=== PATIENT | male | born 1970 | race Caucasian/White ===

== ENCOUNTER → 2016-12-08 | Outpatient (CLI) | payer OTHER | LOC: CIMAGING 13:57 | PROVIDERS: ATTEND Physical Medicine & Rehabilitation | DX: M79.674 Pain in right toe(s) (principal) | CPT/HCPCS: 73630-PO ==

== ENCOUNTER → 2017-01-04 | Outpatient (CLI) | payer OTHER | LOC: FIMAGING 09:50 | PROVIDERS: ATTEND Family Medicine | DX: M89.8X5 Other specified disorders of bone, thigh (principal) ==

== ENCOUNTER 2017-04-27 07:39 | Day surgery (SDC) | payer OTHER ==
[~2017-04-27 07:39] MED LIST: ROPIVACAINE 0.2% 80 MG, EPINEPHrine 0.2 MG, morphINE 10 MG in SYRINGE 0 ML IU ONE
[2017-04-27] MEDS ORDERED: ACETAMINOPHEN 325 MG TAB PO ONE (07:46)
[2017-04-27] MEDS ORDERED: GABAPENTIN 300 MG CAP PO ONE (07:46)
[2017-04-27] MEDS ORDERED: ceFAZolin 2 GM/SWFI 2 GM/20 ML SYR IVP ONE (07:46)
[2017-04-27] MEDS ORDERED: LIDOCAINE 1% 2 ML INJ ID PRN (07:47)
[2017-04-27] MEDS ORDERED: LR 1,000 ML IV ONE (07:47)
--- NOTE | 2017-04-27 09:10 | PDHPUP ---
History & Physical Update H&P update statement: This history and physical update is based on an assessment of the patient which was completed after admission or registration (within 24 hours), but prior to the surgery/procedure. H&P update: H&P reviewed & patient examined, no change in patient's condition since H&P completed
[2017-04-27] MEDS ORDERED: fentaNYL 250 MCG/5 ML INJ ONE (09:24)
[2017-04-27] MEDS ORDERED: PROPOFOL 200 MG/20 ML VIAL ONE ×2 (09:24)
[2017-04-27] MEDS ORDERED: DEXAMETHASONE 4 MG/ML VIAL ONE (09:27)
[2017-04-27] MEDS ORDERED: KETOROLAC 30 MG/1 ML SDV ONE (09:27)
[2017-04-27] MEDS ORDERED: ONDANSETRON 4 MG/2 ML VIAL ONE (09:27)
[2017-04-27] MEDS ORDERED: ROCURONIUM 100 MG/10 ML VIAL ONE (09:28)
[2017-04-27] MEDS ORDERED: LIDOCAINE 2% 5 ML SDV ONE (09:28)
[2017-04-27] MEDS ORDERED: MIDAZOLAM 2 MG/2 ML VIAL IVP ONE (09:35)
--- NOTE | 2017-04-27 09:36 | PDANEPAE ---
ANE History of Present Illness right hip DAISHA p/f hip scope ANE Past Medical History - Cardiovascular History Hx Hypertension: Yes Hx Arrhythmias: No Hx Chest Pain: No Hx Coronary Artery / Peripheral Vascular Disease: No Hx CHF / Valvular Disease: No Hx Palpitations: No Cardiovascular History Comment: HYPERCHOESTEROLEMIA - Pulmonary History Hx COPD: No Hx Asthma/Reactive Airway Disease: No Hx Recent Upper Respiratory Infection: No Hx Oxygen in Use at Home: No Hx Sleep Apnea: No Sleep Apnea Screening Result - Last Documented: Negative - Neurologic History Hx Cerebrovascular Accident: No Hx Seizures: No Hx Dementia: No - Endocrine History Hx Diabetes: No Hypothyroid: No Hyperthyroid: No Obesity: yes, mild - Renal History Hx Renal Disorders: No - Liver History Hx Hepatic Disorders: No - Neurological & Psychiatric Hx Hx Neurological and Psychiatric Disorders: No - Cancer History Hx Cancer: No - Congenital Disorder History Hx Congenital Disorders: No - GI History GERD: mild Hx Gastrointestinal Disorders: No Gastrointestinal History Comment: ACID REFLUX - Other Health History Other Health History: NEG - Chronic Pain History Chronic Pain: Yes (LOW BACK PAIN) - Surgical History Prior Surgeries: LABRAL TEAR L SHOULDER. TONSILLECTOMY ANE Review of Systems Review of systems is: negative Review of Systems: - Exercise capacity METS (RN): 5 METS ANE Patient History - Allergies Allergies/Adverse Reactions: Latex, Natural Rubber Allergy (Verified 04/27/17 08:11) Itching - Home Medications Home medications: home medication list seen and reviewed Home Medications: PRILOSEC 07/03/09 [Last Taken 04/27/17 05:30] Aspirin 04/24/17 [Last Taken 04/17/17] Benicar 04/24/17 [Last Taken 04/26/17 22:00] HCTZ (*) 04/24/17 [Last Taken 04/26/17 22:00] Multivitamin 04/24/17 [Last Taken 04/13/17] Pravastatin Sodium 04/24/17 [Last Taken 04/26/17 22:00] - NPO status NPO Since - Liquids (Date): 04/26/17 NPO Since - Liquids (Time): 21:30 NPO Since - Solids (Date): 04/26/17 NPO Since - Solids (Time): 17:30 - Anes Hx Anes Hx: no prior problems - Smoking Hx Smoking Status: Never smoked - Alcohol Use Alcohol Use: None - Family Anes Hx Family Anes Hx: none Family Hx Anesthesia Complications: NEG ANE Labs/Vital Signs - Vital Signs Blood Pressure: 135/93 Heart Rate: 89 Respiratory Rate: 16 O2 Sat (%): 94 Height: 187.96 cm Weight: 125.645 kg ANE Physical Exam - Airway Neck exam: FROM Mallampati Score: Class 1 Mouth exam: normal dental/mouth exam - Pulmonary Pulmonary: no respiratory distress - Cardiovascular Cardiovascular: regular rate and rhythym - ASA Status ASA Status: II ANE Anesthesia Plan Anesthesia Plan: general endotracheal anesthesia Specialized Airway: video laryngoscope
[2017-04-27] MEDS ORDERED: BUPIVACAINE/EPI 0.5% 30 ML SDV ONE (09:37)
[2017-04-27] MEDS ORDERED: SUGAMMADEX SODIUM 200 MG/2 ML VIAL IVP ONE (10:13)
[2017-04-27] MEDS ORDERED: MORPHINE IU ONE (10:45)
[2017-04-27] MEDS ORDERED: ROPIVACAINE IU ONE (10:45)
[2017-04-27] MEDS ORDERED: hydrALAZINE 20 MG/ML VIAL ONE (10:56)
[2017-04-27] MEDS ORDERED: PROMETHAZINE HCL 25 MG/ML INJ IVP PRN (11:32)
[2017-04-27] MEDS ORDERED: ONDANSETRON 4 MG/2 ML VIAL IVP PRN (11:32)
[2017-04-27] MEDS ORDERED: HYDROCODONE/APAP 5/325 TAB PO PRN (11:32)
[2017-04-27] MEDS ORDERED: ACETAMINOPHEN 500 MG TAB PO PRN (11:32)
[2017-04-27] MEDS ORDERED: LR 500 ML IV PRN (11:32)
[2017-04-27] MEDS ORDERED: HYDROmorphONE/DILAUDID 1 MG/ML INJ IVP PRN (11:32)
[2017-04-27] MEDS ORDERED: NALOXONE HCL 0.4 MG/ML INJ IVP PRN (11:32)
[2017-04-27] MEDS ORDERED: ALBUTEROL 3 ML DEYVIAL IH PRN (11:32)
[2017-04-27] MEDS ORDERED: METOCLOPRAMIDE 10 MG/2 ML VIAL IVP PRN (11:32)
[2017-04-27] MEDS ORDERED: OXYCODONE/APAP 5/325 TAB PO PRN (11:32)
--- NOTE | 2017-04-27 12:58 | POSTANESTH ---
Post Anesthetic Evaluation Cardiovascular Status: Normal, Stable Respiratory Status: Normal, Stable Level of Consciousness/Mental Status: Can Participate in Eval Pain Control: Adequate, Prn Tx Ordered Nausea/Vomiting Control: Adequate, Prn Tx Ordered Complications Possibly Related to Anesthesia: None Noted
--- NOTE | 2017-04-27 12:58 | POSTOPPROG ---
Post Op Note Date of Operation: 04/27/17 Surgeon: Alex Ford Clinical Rn: ISRAEL Guerrero Anesthesiologist: MD Kiko Anesthesia: GET(General Endotracheal) Pre-op Diagnosis: R hip DAISHA, Labral tear Post-op Diagnosis: same plus grade 3 chondromalacia, notch osteophyte, LT tear Procedure: R hip arthroscopy, labral repair, LT debridement, femoro/notch/ acetabulopla Inf/Abcess present in the surg proc area at time of surgery?: No EBL: Minimal (30) Complications: none
[2017-04-27] MEDS ORDERED: fentaNYL 100 MCG/2 ML INJ ONE (13:08)
[2017-04-27] MEDS: fentaNYL 100 MCG/2 ML INJ IVP PRN ×2 (13:11→13:43)
[2017-04-27 13:19] VITALS: TEMP 98.2
[2017-04-27 14:28] VITALS: BP 105/65; PULSE 77; RESP 18; O2SAT 92
--- NOTE | 2017-04-27 23:37 | GOP ---
[f rep st] OPERATIVE REPORT DATE OF OPERATION: 04/27/2017 SURGEON: Alex Ford MD PACK MASTER: Jerrod Interiano PA-C. Real Estate Broker was necessary due to the complex nature of the procedure and the patient's condition for positioning, prepping, draping, driving the arthroscope, manipulation of instruments, and closure. ANESTHESIA: General endotracheal. PREOPERATIVE DIAGNOSIS: Right hip femoral acetabular impingement with labral tear. POSTOPERATIVE DIAGNOSIS: 1. 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 2. 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 3. Ligamentum teres tear. 4. Notch osteophyte. 5. Loose body. PROCEDURE PERFORMED: Right hip arthroscopy with labral repair; loose body removal; femoroplasty; acetabuloplasty from 12:30 to 2, 2 mm; notchplasty; ligamentum teres debridement; and capsular repair. FINDINGS: Diagnostic arthroscopy revealed a notch osteophyte, ligamentum teres tear Cielo grade 3 (degenerative Domb grade 3 at least 75% torn). Labral tear is graded as Seldes 1 combined 1, 2 from 12 o'clock to 2 o'clock. There was grade 2 ALAD outer bridge 2 to 3 comprising 2 sq cm of the cartilage of the acetabulum located centrally and peripherally. There was also central femoral head chondromalacia grade 3, 2 sq cm. Labral sizes were 6, 5, 6, 6. There was an intraarticular chondral loose body measuring greater than 5 mm. SPECIMENS: None. ESTIMATED BLOOD LOSS: 30 cc. INDICATIONS: The patient had [id number] pain worsened by flexion, joint motion, impingement test for more than 3 months. Patient's pain significantly limited simple activities of daily living such as walking, getting into and out of the car, squatting, picking up an object, and putting on shoes and socks. The pain has been unresponsive to more than 3 months of conservative treatment including activity modification, avoidance of symptomatic motions, restrictions of athletics, medications, and physical therapy. Clinically, the patient had positive impingement sign which reproduced the pain. Radiographically, there was no evidence of advanced arthritis: The hip is graded Tonnis 1 and has intact joint space. There was no suspicion of outer bridge grade 3 or 4 cartilage damage. MRI demonstrated a labral tear. The patient was not indicated for total hip replacement given the preoperative diagnostic imaging. Given the failure to improve with conservative measures, the patient elected to proceed with arthroscopic treatment. The patient verbalized an understanding of the risks and benefits to the procedure and signed informed consent prior to the procedure. DESCRIPTION OF PROCEDURE: Patient was seen in the holding area, and the operative site was signed. Patient was taken to the operating room. After smooth induction of general anesthesia, the patient was placed in supine position on the [employer] traction table with well-padded perineal post, the genitalia protected, and the feet well secured. The hip was then prepped and draped in the usual sterile fashion. Operative site was confirmed by signature. Operative time-out performed. Allergies were reviewed and antibiotics administered. Traction was applied to the hip under fluoroscopy. Anterolateral portal was created with 11 blade. Spinal needle was introduced into the joint under fluoroscopy, and the joint was vented to achieve further distention. Spinal needle was withdrawn and reinserted to ensure avoidance of the labrum and the femoral head. Ztqa-itd-obmesxlyo technique was used to place a 70-degree arthroscope through the 4.5 mm cannula. Same over-the- guidewire technique was used to place a 5 mm cannula through the main anterior portal. CAPSULOTOMY: Shackelford blade was used to perform a capsular release, incising the capsule parallel to the acetabulum to connect the 2 portals. Further joint mobilization was achieved in this fashion. Shackelford blade was used to perform capsulotomy, incising the capsule parallel to the acetabulum to connect the 2 portals. DIAGNOSTIC ARTHROSCOPY: Diagnostic arthroscopy was performed. The portals were switched frequently during this and all other parts of the procedure to access all parts of the joint. All parts of the joint were examined and probed including the entire labrum, cartilage of the femur, acetabulum, ligamentum teres, acetabular fossa and pincer, which was probed under fluoroscopy to define the extent of the anterior over-coverage. LOOSE BODY REMOVAL: Loose bodies were removed with the arthroscopic shaver. This was identified as a chondral flap measuring greater than 5 mm. ACETABULOPLASTY: Acetabuloplasty was undertaken. The capsule was elevated from the pincer lesion using the ablator radiofrequency wand, and a 5.0 mm waldemar bur was used to perform the acetabular rim trimming. A maximum of approximately 2 mm was trimmed. This was carried out between 12:30 and 2 o' clock using fluoroscopic visualization to eliminate a crossover sign fluoroscopically and trim the pretemplated amount of bone from the impinged part of the rim. NOTCHPLASTY: The acetabuloplasty of the notch osteophyte was performed through the mid-anterior portal with a 5 mm bur, removing the abnormal bone spur up to the border of normal cartilage. LABRAL REPAIR WITH LOOP STITCH TECHNIQUE: The labral repair was then undertaken using a loop stitch technique. A total of 2 stitches and anchors were placed. Excellent refixation of the labrum was achieved in this fashion. The labrum repair was an independent procedure not secondary to the acetabuloplasty. It would have been necessary with or without acetabuloplasty due to the labral tear. Radiofrequency was then used to denervate and shrink the collagen fibers of the labrum. LIGAMENTUM TERES DEBRIDEMENT: The ligamentum teres debridement was performed using a bipolar radiofrequency wand to abut and stabilize the torn and frayed portions of the ligamentum. FEMOROPLASTY: The damaged cartilage that was overlying the head and neck junction was removed using radiofrequency. Femoroplasty was performed using a 5 mm bur. This was done with extensive fluoroscopic visualization. The hip was moved between 0 and 90 degrees of flexion and between internal and external rotation. The fluoroscope was also moved as necessary so that the simultaneous arthroscopic and fluoroscopic views were obtained at all times. In this manner , arthroscopic head and neck offset and spherical contour were created. The femoroplasty surface was then polished using a bur. Dynamic impingement test was performed. CAPSULE REPAIR: The capsule repair was then undertaken. Disposable cannula was placed in the mid anterior portal. The SlingShot was used to penetrate the proximal limb of the capsule to pass a #2 Vicryl suture through both the distal and proximal limbs. This was tied outside the capsule using standard arthroscopic knot-tying technique. This was repeated for a total of 2 stitches. Excellent repair was achieved hip. The joint was lavaged, sucked dry of all fluid. All instruments were withdrawn from the joint. The portals were closed using 3-0 Monocryls, Dermabond, Steri- Strips. Sterile dressings were applied to the hip, and the hip was placed in the brace locked from 0 to 90 degrees of flexion. The patient was safely awakened and extubated, taken to recovery room in stable condition. FLUOROSCOPIC SUPERVISION: Greater than 1 hour. DRAINS: None. COMPLICATIONS: None. IMPLANTS: Arthrex 3.0 mm Knotless SutureTak x2. TRACTION TIME: 56 minutes. POSTOPERATIVE INSTRUCTIONS: 1. Two weeks of crutches with 20 pounds weightbearing on the operative extremity. The brace was for postoperative stability to be worn for 2 weeks. Physical therapy to begin the day after surgery following all 4 phases of the protocol. 2. CPM/stationary bike to begin the day after surgery for a total of 8 weeks. All critical portions of the procedure were performed by Dr. Liliana pascual. This operative note was created by Dr. Liliana pascual. I was immediately available for emergency cross-coverage at all times. /[id number]/MODL MTDD
== END 2017-04-27 18:00 | disposition home or self-care (01) ==
LOC: FSGY 07:39
PROVIDERS: ATTEND Orthopaedic Surgery
PROC: BQ10YZZ Fluoroscopy of Right Hip using Other Contrast (ICD-10-PCS; 2017-04-27)
PROC: 0SC Lower Joints, Extirpation (ICD-10-PCS; principal; 2017-04-27 09:45)
PROC: 0MBL4ZZ Excision of Right Hip Bursa and Ligament, Percutaneous Endoscopic Approach (ICD-10-PCS; principal; 2017-04-27 09:45)
PROC: 0SQ94ZZ Repair Right Hip Joint, Percutaneous Endoscopic Approach (ICD-10-PCS; principal; 2017-04-27 09:45)
DX: M25.851 Other specified joint disorders, right hip (principal); M24.151 Other articular cartilage disorders, right hip; M94.251 Chondromalacia, right hip; M24.051 Loose body in right hip; M25.751 Osteophyte, right hip; M16.11 Unilateral primary osteoarthritis, right hip; M25.551 Pain in right hip; E78.00 Pure hypercholesterolemia, unspecified; I10 Essential (primary) hypertension
CPT/HCPCS: C1713; J0171; J0360; J0690; J1100; J1885; J2250; J2405; J2704; J2795; J3010